=== PATIENT | male | born 1975 | race Caucasian/White ===

== ENCOUNTER 2017-11-12 16:00 | Outpatient (RCR) | payer BC, SELFPAY ==
--- NOTE | 2017-10-03 09:21 | HP.OTEVAL_ITS ---
Patient's Visit Information ASHLEY GONZALES is a 42 year old M, referred to Occupational Therapy by Hussein Kevin, , with a diagnosis of right thumb/ laceration EPL musc/fasc/tend. Date of Evaluation: 10/02/17 Occupational Therapist: Marlee Christy, OTR/L, CHT - Subjective Subjective: pt lacerated his left thumb sx Sep.12. pt 3 weeks S/p returns to on . Attends session today for orthosis to initate rehab protocol. - ROM Wrist: right NT left WNL CMC: right NT left WNL MP: right NT left WNL IP: right NT left WNL ROM Comments: will test right thumb and wrist ROM when pt is at 4 weeks S/P to follow EPL repair protocol - Strength Strength Comments: No limited UB ROM - Sensation Sensation Comments: denies any sensation loss - Goals Goal:100% adherence to protocol: Yes Comment: EPL repair Goal:Daily scar massage when approriate: Yes Goal:ROM equal to unaffected hand: Yes Goal:[employer] Waste Dis[employer] Dispatcher/Pinch strength at least 75% of unaffected hand: Yes Goal:No pain with affected hand use: Yes Goal:Full use of affected hand in daily activities including: Yes Goal:Decrease scar hypersensitivity: Yes - Rehabilitation General Assessment: pt demo he is currently 20 days S/P from EPL repair. pt in need of custom orthosis to provide protection and support to tendon while it heals. Skilled OTR/L, CHT will initate EPL protocol and begin AROM at 4 weeks and cont with protocol until pt has reached his PLOLF Rehabilitation Potential: Excellent - Anticipated Interventions Anticipated Interventions: A/AAROM/PROM, Strengthening, Scar Care, Triggerpoint Release, Desensitization, Modalities, Orthoses, Fine Motor Coord/Moses - Visit Plan Frequency: 1-2x /Week Duration: 3 Months General Plan: pt demo he is currently 20 days S/P from EPL repair. pt in need of custom orthosis to provide protection and support to tendon while it heals. Skilled OTR/L, CHT will initate EPL protocol and begin AROM at 4 weeks and cont with protocol until pt has reached his PLOLF- today pt was oxana custom orthosis and ed. on use and precautions followed with ed. pt on scar mtg. pt demo understanding- TEXT: Thank you for the opportunity to evaluate your patient. For Medicare and Medicare HMO plans, please review the plan of care and approve it. It will need to be FAXED BACK to us at [phone] for Medicare purposes. Please let me know if there are questions or concerns regarding this plan of care. Physician Signature: Date:
--- NOTE | 2018-03-03 15:01 | HP.OT.NRP ---
HP - Discharge Summary - Patient Information ASHLEY GONZALES was seen in my office for initial evaluation on 10/02/17. The following Plan of Care was established for this patient: Initial Frequency: 1-2x /Week Initial Duration: 3 Months Plan: pt to call after dr. el. - Anticipated Interventions Anticipated Interventions: A/AAROM/PROM, Strengthening, Scar Care, Triggerpoint Release, Desensitization, Modalities, Orthoses, Fine Motor Coord/Moses This patient was last seen in our office 11/12/17. Pertinent comments regarding their Occupational therapy will appear below: pt was seen for 6 visits- he was to return to and let us know if he wanted to cont with PRE- pt has not returned and is D/C at this time. At this point I will be discontinuing this patient from occupational therapy. I would be happy to see this patient again in the future if found appropriate by the physician. Thank you! Marlee Christy, OTR/L, CHT
== END 2017-11-12 19:00 | disposition home or self-care (01) ==
LOC: OT 16:00
PROVIDERS: Visit Provider Orthopaedic Surgery
DX: S66.222D Laceration of extensor muscle, fascia and tendon of left thumb at wrist and hand level, subsequent encounter (principal); X58.XXXD Exposure to other specified factors, subsequent encounter
CPT/HCPCS: 97018; 97035; 97140; 97166; 97760

== ENCOUNTER 2021-02-18 20:37 | Emergency (ER) | payer OTHER, SELFPAY ==
[2021-02-18 20:38] VITALS: BP 131/74; PULSE 76; RESP 16; TEMP 37; O2SAT 98; BMI 27.2
--- NOTE | 2021-02-18 20:47 | EDS_ITS ---
HPI History of Present Illness Chief Complaint: Back Narrative Narrative: 46-year-old male presents with right lower back pain. States that he was in his shop lifting an 80 pound piece of metal and twisted when he went to his knees with pain in his right lower back. States that he was able to make it inside and sat in the chair and took 800 mg of Motrin. This occurred approximately 5 hours ago. When his got back he tried to get out of the chair and he felt like his legs were weak. Feels like he has weakness in his right lower extremity. States he is urinated twice since that time without difficulty. Denies any numbness or tingling. Denies any previous back surgery or injuries. [facility] Medical History (Updated 02/18/21 @ 23:[address] Yifan Melvin DO) Acute lumbar back pain Home Medications ibuprofen [Motrin] 800 mg PO BID 02/18/21 [History Last Taken Unknown] methylprednisolone [Medrol (Fritz)] 4 mg PO DAILY #21 tab 02/18/21 [Rx Last Taken Unknown] oxycodone-acetaminophen [Percocet] 1 tab PO Q8H PRN 2 Days #6 tab 02/18/21 [Rx Last Taken Unknown] Allergy/AdvReac Type Severity Reaction Status Date / Time No Known Allergies Allergy Verified 02/18/21 20:38 no significant family history no surgical history Social History Smoking Status: Never smoker ROS ROS ED Constitutional Constitutional ED: Denies chills, fever(s) or sweats Eyes Eyes: Denies blurry vision, change in vision or diplopia ENT ENT ED: Denies rhinorrhea or sore throat Cardiovascular Cardiovascular: Denies chest pain, orthopnea, palpitations or racing heartbeat Respiratory/Chest Respiratory/Chest: Denies cough, dyspnea, dyspnea on exertion, orthopnea or sputum Gastrointestinal Gastrointestinal: Denies abdominal pain, constipation, diarrhea, melena, nausea or vomiting Genitourinary Genitourinary ED: Denies dysuria, hematuria or urinary frequency Musculoskeletal Musculoskeletal: Reports back pain; Denies arthralgias, myalgias or neck pain Integumentary Denies rash Neurologic Neurologic: Denies headache(s), paresthesias or weakness Psychiatric Psychiatric: Denies anxiety or depression Hematologic/Lymphatic Hematologic/Lymphatic: Denies easy bleeding or easy bruising Allergic/Immunologic Allergic/Immunologic ED: Denies mouth swelling or tongue swelling EXAM Physical Exam Const Vital Signs: 02/18/21 20:38 02/18/21 22:26 Temperature 98.6 F Temperature Source Temporal Pulse Rate 76 54 L Respiratory Rate 16 16 Blood Pressure 131/74 H 124/76 H Blood Pressure Mean 93 92 Pulse Ox 98 97 Oxygen Delivery Method Room Air Room Air Positive well nourished and well developed General Appearance ED: well developed HEENT Reports TM's clear and moist mucous membranes normocephalic and atraumatic Tympanic Membrane ED: Yes TM's clear Eyes PERRL and EOMs intact bilaterally Neck no lymphadenopathy, supple and no JVD Chest Wall inspection of chest normal Resp normal respiratory effort and clear to auscultation bilaterally Cardio regular rate, S1 normal heart sound, S2 normal heart sound and no murmurs Peripheral Pulses: pulses 2+ throughout GI soft to palpation, non-tender and non-distended Back/Spine no CVA tenderness and no thoracic nor lumbar tenderness Back/Spine Narrative: Tenderness with muscle spasm on the right paraspinal lumbar musculature. With dorsiflexion of the right foot patient has pain in his right lower back with spasm. Extremity normal to inspection General Extremety ED: Negative for edema or tenderness General Extremity: Negative for edema Neuro oriented x3, CN's II-XII intact bilaterally and no sensory deficits noted Sensorium / Orientation: alert Motor Exam: strength 5/5 throughout Psych mental status grossly normal Skin no rashes or lesions noted MDM MDM MDM Narrative Medical decision making narrative: Patient appears well and nontoxic. Vital signs within normal limits. Patient has no decreased sensation or motor strength in the lower extremities. Patient is having muscle spasm. Was given morphine, Zofran, fluid bolus, Valium. Is feeling somewhat improved and is able to ambulate but is continued to have pain. Was given Dilaudid. Feeling much improved following this. On reevaluation and neurologic exam patient continues to have full motor strength as well as sensation. Patient will be discharged home and given a short course of pain medication as well as Medrol Dosepak. Will be given Dr. Minor orthopedic spine to follow-up with. Asked to return for any loss of bowel or bladder, inability to urinate, fever, chills, saddle anesthesia, lower extremity numbness. Patient and agreeable and discharged home in stable condition. Lab Data Attestation: I reviewed the patient's lab results. Labs: Laboratory Results - last 24 hr 02/18/21 02/18/21 20:55 20:55 WBC 8.1 RBC 5.26 Hgb 15.6 Hct 46.8 MCV 89.0 MCH 29.7 MCHC 33.3 RDW Std Deviation 40.9 RDW Coeff of Bautista 12.5 Plt Count 241 MPV 10.1 Immature Gran % (Auto) 0.400 Neut % (Auto) 59.5 Lymph % (Auto) 31.5 [place] % (Auto) 6.5 Eos % (Auto) 1.2 Baso % (Auto) 0.9 Absolute Neuts (auto) 4.8 Absolute Lymphs (auto) 2.54 Nucleated RBC % 0 Sodium 141 Potassium 3.6 Chloride 106 Carbon Dioxide 29.0 Anion Gap 6 BUN 13 Creatinine 1.12 Estim Creat Clear Calc 93.78 Est GFR (MDRD) Af Amer 90 Est GFR (MDRD) Non-Af 74 BUN/Creatinine Ratio 11.6 Glucose 104 Calcium 9.3 Discharge Plan Triage Chief Complaint: Back ED Provider: Yifan Melvin Dx/Rx/DC Orders Clinical Impression: Muscle spasm, Acute lumbar back pain Instructions: ED Back Exercises, Lumbar, ED Back Spasm, No Trauma Prescriptions: New oxycodone-acetaminophen [Percocet] 5-325 mg tablet 1 tab PO Q8H PRN (Reason: pain) 2 Days Qty: 6 RF: 0 methylprednisolone [Medrol (Fritz)] 4 mg tablets,dose pack 4 mg PO DAILY Qty: 21 RF: 0 No Action ibuprofen [Motrin] 800 mg Tablet 800 mg PO BID RF: 0 Primary Care Provider: Damien Hope Referrals: Altaf Minor DO [STAFF PHYSICIAN] - 3-5 Days Damien Hope MD [Primary Care Provider] - 2 Days Activity Restrictions/Additional Instructions: Patient should have no lifting over 5 pounds until cleared by orthopedics or significant improvement of symptoms. Disposition Disposition: Home, self care
[2021-02-18] MEDS: Ondansetron 4 MG/2 ML Vial IV (20:51)
[2021-02-18] MEDS: Morphine 4 MG/ML Syringe IV (20:51)
[2021-02-18 21:07] LABS: Absolute Lymphocyte Count 2.54 X10^3/uL (0.83-4.51); Absolute Neutrophil Count 4.8 X10^3/uL (2.0-7.7); Basophil# 0.07 X10^3/uL; Basophil% 0.9 % (0-1); Eosinophils% 1.2 % (0-5); Hematocrit 46.8 % (40-54); Hemoglobin 15.6 g/dL (13.0-16.5); Lymphocyte # 2.54 X10^3/ul (0.83-4.51); Lymphocyte % 31.5 % (19-41); Mean Corp Hgb Conc 33.3 g/dL (32-36); Mean Corpuscular Hgb 29.7 pg (27.0-32.0); Mean Platelet Vol. 10.1 fl (6.2-12.0); Monocyte# 0.52 X10^3/uL; Monocyte% 6.5 % (0-10); NRBC Flagged by Analyzer 0 % (0-5); Neutrophil % 59.5 % (47-70); Platelet Count 241 K/mm3 (150-450); RBC Distribution Width CV 12.5 % (11.6-14.6); RBC Distribution Width SD 40.9 fl (35.1-43.9); Red Blood Count 5.26 M/mm3 (4.6-6.2); White Blood Count 8.1 K/mm3 (4.4-11.0)
[2021-02-18 21:23] LABS: Anion Gap 6 (5-15); BUN 13 mg/dL (7-18); BUN/Creat Ratio 11.6 RATIO (10-20); Calcium,Total 9.3 mg/dL (8.5-10.1); Chloride 106 mmol/L (98-107); Creatinine, Serum 1.12 mg/dL (0.70-1.30); EST Glomerular Filtration Rate 74 mL/min (>60); Est Glom Filt Rate - Afr Amer 90 mL/min (>60); Estimated Creatinine Clearance 93.78 ml/min; Glucose 104 mg/dL (74-106); Potassium 3.6 mmol/L (3.5-5.1); Sodium Level 141 mmol/L (136-145)
[2021-02-18] MEDS: diazePAM 5 MG Tablet PO (21:35)
[2021-02-18 22:26] VITALS: BP 124/76; PULSE 54; RESP 16; O2SAT 97
--- NOTE | 2021-02-18 22:32 | NURSING ---
Pt walked around the room. Pt continues to c/o pain. notified
[2021-02-18] MEDS: HYDROmorphone 0.5 MG/0.5 ML SYRINGE IV (22:42)
[2021-02-18 23:38] VITALS: BP 117/72; PULSE 55; RESP 18; O2SAT 98
== END 2021-02-18 23:39 | disposition home or self-care (01) ==
PROVIDERS: Emergency Provider Emergency Medicine; PCP Family Medicine
DX: M54.5 Low back pain (principal); M62.830 Muscle spasm of back
CPT/HCPCS: 80048; 85025; 96361; 96374; 96375; 99283; J7040; A4216; J2405

== ENCOUNTER → 2021-02-26 16:18 | Outpatient (CLI) | payer OTHER, SELFPAY ==
[2021-02-20 10:03] VITALS: BMI 26.3
--- NOTE | 2021-02-26 16:18 | MRI_ITS ---
STUDY: MRI LUMBAR SPINE WITHOUT CONTRAST REASON FOR EXAM: Male, 46 years old. Severe low back pain and right leg pain after bending over. TECHNIQUE: Standardized fat and water weighted pulse sequences were obtained in the sagittal and axial planes. COMPARISON: None FINDINGS: T12-L1: (Sagittal only). Normal endplates. Normal disc height, hydration and morphology. No ventral extradural defect. Normal central canal and bilateral intervertebral neural foramina. Normal lumbar lordosis. There is no substantial scoliosis. Normal conus medullaris that terminates at the lower L1 vertebral body level. L1-2: Normal endplates. Normal disc height, hydration and morphology. Normal bilateral facet joints. Normal central canal and bilateral lateral recesses. Normal bilateral intervertebral neural foramina. L2-3: Normal endplates. Mild disc space height narrowing. No ventral extradural defect. Normal central canal and bilateral lateral recesses. Normal facet joints. Normal bilateral intervertebral neural foramina. Prominent overlapping left renal cysts are visible at this level. L3-4: Anterior marginal spurs. Normal endplates. Mild disc space height narrowing. No ventral extradural defect. Normal central canal and bilateral lateral recesses. Normal facet joints. Normal bilateral intervertebral neural foramina. L4-5: Normal endplates. Normal disc height. Small posterior annular bulging disc. Normal central canal and bilateral lateral recesses. Normal facet joints. Normal bilateral intervertebral neural foramina. L5-S1: Normal endplates. Normal disc height, hydration and morphology. Normal bilateral facet joints. Normal central canal and bilateral lateral recesses. Normal bilateral intervertebral neural foramina. Normal visualized sacral ala. Normal visualized paraspinous soft tissue structures. MRI/Spine Lumbar (Routine) IMPRESSION: 1. No MRI evidence of lumbar extruded disc fragment, spinal stenosis or nerve or displacement. 2. Small L4-L5 posterior annular bulging disc. Electronically Signed: Addison Miranda MD at 10:20 EDT , Service support ,
== END ==
PROVIDERS: PCP Family Medicine; Referring Provider Orthopaedic Surgery; Visit Provider Orthopaedic Surgery
DX: M51.26 Other intervertebral disc displacement, lumbar region (principal)
CPT/HCPCS: 72148

== ENCOUNTER → 2023-04-08 | Outpatient (CLI) | payer OTHER, SELFPAY ==
--- NOTE | 2023-04-08 10:10 | RAD_ITS ---
INDICATION: PAIN IN LUMBAR SPINE EXAMINATION/TECHNIQUE: X-RAY - XR Spine Lumbar Comp W/ Bending Min 6 Views COMPARISON: FINDINGS: VERTEBRAE: Preserved vertebral body height. No fracture. No spondylolisthesis. Preservation of the normal lumbar lordosis. No significant facet arthropathy. DISCS: There is mild multilevel disc space narrowing and endplate spondylosis. INCLUDED ABDOMEN: Included bowel gas pattern is non-obstructive. RAD/L/S Spine w Bend Min 6 Vw IMPRESSION: Degenerative changes. Electronically Signed: Scar Geronimo, at 14:56 EDT ,
== END | disposition home or self-care (01) ==
LOC: MTRAD 10:01
PROVIDERS: PCP Family Medicine; Referring Provider Anesthesiology Pain Medicine; Visit Provider Anesthesiology Pain Medicine
DX: M54.17 Radiculopathy, lumbosacral region (principal)
CPT/HCPCS: 72114

== ENCOUNTER → 2024-11-01 | Outpatient (CLI) | payer OTHER, SELFPAY ==
--- NOTE | 2024-11-01 17:12 | MRI_ITS ---
STUDY: MRI LUMBAR SPINE WITHOUT CONTRAST REASON FOR EXAM: Male, 49 years old. RT LEG WEAKNESS TECHNIQUE: Standardized fat and water weighted pulse sequences were obtained in the sagittal and axial planes. COMPARISON: February 26, 2021 FINDINGS: T12-L1: Normal endplates. Normal disc height, hydration and morphology. Normal bilateral facet joints. Normal central canal and bilateral lateral recesses. Normal bilateral intervertebral neural foramina. Normal lumbar lordosis. There is no substantial scoliosis. Normal conus medullaris that terminates at T12-L1. No evidence for acute fracture or subluxation. Scattered interosseous lipomatous deposits. L1-2: Anterior endplate spurring. Normal disc height, disc hydration and minimal annular bulge. Normal bilateral facet joints. Normal central canal and bilateral lateral recesses. Normal bilateral intervertebral neural foramina. L2-3: Mild anterior endplate spurring. Narrowed disc space with desiccation of the disc and minimal annular bulge. Normal bilateral facet joints. Normal central canal and bilateral lateral recesses. Normal bilateral intervertebral neural foramina. L3-4: Mild anterior endplate spurring. Narrowed disc space with desiccation of disc and small left foraminal disc protrusion and tiny right foraminal disc protrusion on the right. Mild facet arthropathy. Normal central canal and bilateral lateral recesses. Mild right neural foraminal stenosis and moderate left neural foraminal encroachment. L4-5: Normal endplates. Normal disc height, desiccation and minimal annular bulge with tiny broad-based right paracentral disc protrusion and small left foraminal disc protrusion. Facet arthropathy.. Normal central canal and bilateral lateral recesses. Mild left neural foraminal stenosis L5-S1: Normal endplates. Normal disc height, hydration and minimal annular bulge with tiny right foraminal disc protrusion. Facet arthropathy.. Normal central canal and bilateral lateral recesses. Moderate to severe right neuroforaminal stenosis Normal visualized sacral ala. Normal visualized paraspinous soft tissue structures. There has been slight interval progression of disc disease since prior exam MRI/Spine Lumbar (Routine) IMPRESSION: No evidence for acute fracture or other significant bony pathology. Multilevel spinal stenosis secondary to disc disease and bony hypertrophy more pronounced at L3-4 and L4-5 on the left and L5-S1 on the right Electronically Signed: Damien Benites MD at 18:58 EST Reading Location ID and State: [facility] / [place] Tel , Service support ,
== END | disposition home or self-care (01) ==
PROVIDERS: PCP Family Medicine; Referring Provider Anesthesiology Pain Medicine; Visit Provider Anesthesiology Pain Medicine
DX: M54.17 Radiculopathy, lumbosacral region (principal); R29.898 Other symptoms and signs involving the musculoskeletal system
CPT/HCPCS: 72148

== ENCOUNTER 2024-12-03 08:00 | Outpatient (RCR) | payer OTHER, SELFPAY ==
--- NOTE | 2024-11-04 13:49 | HP.PTEVAL_ITS ---
Patient's Visit Information Visit Information Visit Information: ASHLEY GONZALES is a 49 year old M referred to Physical Therapy by Dr. Damien Gonzalez MD with a diagnosis of INTERVERBAL DISC DEGENERATION ,LUMBAR ,RADICULOPATHY LUMBAR. Date of Evaluation: 11/04/24 Physical Therapist: Bandar Ng, PT, Cert MDT, OCS Visit Plan Frequency: 2x /Week Duration: 4 Weeks Plan: PT INTERVENTIONS ADDY EX'S ,DLS ,POSTURAL EX'S ,BLE FLEXABILITY ,MANUAL THERAPY AND MODALTIES Subjective Subjective: This 49 y/o male presents to physical therapy with lumbar radiculopathy. Patient has had lumbar pain 2020 ,had consult with DR Minor then had epidural injection which helped 2020. Patient had episode Friday developed severe pain right leg with shoveling snow. Seen Dr Lopez recommended PThad prednisone which. MRI showed multiple disc protrusion and osteophytes. Initially used crutches to pain and weakness in right legs , Patient uses cane because leaning on cane. Location lumbar center to right. Aggravating bending,walking ,lifting ,twisting ,. Alleviating factors sitting. Coughing/sneezing + Bowel/bladder -. Patient sleeping good. Patient is not working . Patient and Patient condition affects QOL and function/job demands. Patient goals to decrease pain. 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 SOCIAL: Pain Right Back: Pain Intensity (Out of 10): 5 Pain Intensity Range: 10 Objective Objective: POSTURE: mild forward posture GAIT: ambulates with cane 2 point slow valdo NEURO: denies paresthesia/tingling ,reflexes L3-4,L4-5,L5--S 1 2/3 MMT: quads/hams/hip 4-/5 ,ankle 4/5 FLEXABILITY: hamstrings min loss LUMBAR ROM: flexion mod loss ,extension mod loss ,side glides min loss Special Tests L/S Slump test left side: Positive L/S Slump test right side: Positive L/S Left Straight Leg Raise: Negative L/S Right Straight Leg Raise: Negative Lumbar Standing: Flexion - Mechanical Response: No effect Lumbar Standing: Flexion - Symptoms During Testing: Increases Lumbar Standing: Flexion - Symptoms After Testing: Worse Lumbar Standing: Extension - Mechanical Response: No effect Lumbar Standing: Extension - Symptoms During Testing: Decreases Lumbar Standing: Extension - Symptoms After Testing: Better Lumbar Standing: Right Side Glides - Mechanical Response: No effect Lumbar Standing: Right Side [place] - Symptoms During Testing: No effect Lumbar Standing: Right Side [place] - Symptoms After Testing: No effect Lumbar Standing: Left Side [place] - Mechanical Response: No effect Lumbar Standing: Left Side [place] - Symptoms During Testing: No effect Lumbar Standing: Left Side [place] - Symptoms After Testing: No effect Lumbar Lying: Flexion - Mechanical Response: No effect Lumbar Lying: Flexion - Symptoms During Testing: Increases Lumbar Lying: Flexion - Symptoms After Testing: Worse Lumbar Lying: Extension - Mechanical Response: Increases motion Lumbar Lying: Extension - Symptoms During Testing: Decreases Lumbar Lying: Extension - Symptoms After Testing: Better Balance/Special Test Scores Oswestry Low Back Score: 28 Goals Goal 1:: Patient to be I with HEP for back Goal Time Frame: 4-6 Weeks Goal 2:: Patient to improve lumbar ROM for function of recovery for ADLS and lifting Goal Time Frame: 4-6 Weeks Goal 3:: Patient to improve back oswestry score by 5 points to improve QOL Goal Time Frame: 4-6 Weeks Goal 4:: Patient to improve strength BLE to good to improve function and RTW Goal Time Frame: 4-6 Weeks Goal 5:: Patient to demonstrate 60% improvement with function and RTW Goal Time Frame: 4-6 Weeks Rehabilitation Potential Physical Therapy Diagnosis: This patient has derangement asymmetrical central with disc protrusion with pain worse with flexion ,bending ,lifting better with extension along with weakness in legs thus benefit from skilled PT Rehabilitation Potential: Good Anticipated Interventions Patient/Client Instruction: Educate patient on: Condition and Plan of Care For the Purpose of:: To decrease pain, To increase ROM, To improve muscle performance and motor function, To increase tolerance to activity/condition/position, To improve ability of physical actions for home/community/work/leisure, To improve gait and locomotor functions, To improve health of tissue, To decrease soft tissue restriction, To increase flexibility/ROM, To improve endurance, To reduce risk of recurrence and To prevent re-injury Therapeutic Exercise to Include: Strength training, Postural training, Flexibilty training, Dynamic Lumbar Stabilization and Addy Exercises For the Purpose of:: To decrease pain, To decrease swelling/inflammation, To improve muscle performance and motor function, To increase tolerance to activity/condition/position, To improve ability of physical actions for home/community/work/leisure, To improve health of tissue, To increase flexibility/ROM, To reduce risk of recurrence, To prevent re-injury and To improve tolerance to ADL's Manual Therapy Techniques to Include: Mobilization For the Purpose of:: To decrease pain, To increase ROM, To improve health of tissue and To decrease soft tissue restriction TENS: Yes IF ES: Yes Cryotherapy (ice pack, ice massage): Yes Thermo therapy (hot pack): Yes Ultrasound (thermal/non thermal): Yes For the Purpose of:: To decrease pain, To increase ROM, To improve muscle performance and motor function, To increase tolerance to activity/condition/position, To improve health of tissue, To decrease soft tissue restriction and To increase flexibility/ROM Text: Thank you for the opportunity to evaluate your patient. For Medicare and Medicare HMO plans, please review the plan of care and approve it. It will need to be FAXED BACK to us at [phone] for Medicare purposes. For Medicare only, by signing this I certify the plan of care. Please let me know if there are questions or concerns regarding this plan of care. Physician Signature: Date:
--- NOTE | 2024-12-03 08:22 | HP.PTDCSUM ---
Discharge Summary D/C summary: It has been my pleasure to treat ASHLEY GONZALES referred by Dr. Damien Gonzalez MD, with the diagnosis of INTERVERBAL DISC DEGENERATION ,LUMBAR ,RADICULOPATHY LUMBAR for a total of 9 visit(s). Discharge Date: Please see the following information for a summary of their discharge status. Subjective Subjective: Patient doing alot better no pain Patient had epidural injection ..seen DR eden Wed Pain Right Back: Pain Intensity (Out of 10): 0 Overall Improvement % Improvement: 90 Objective Objective/Function: POSTURE: WFL GAIT: ambulates RECIPROCAL PATTERN NEURO: denies paresthesia/tingling ,reflexes L3-4,L4-5,L5--S 1 2/3 MMT: quads/hams/hip 4/5 ,ankle 4/5 FLEXABILITY: hamstrings min loss LUMBAR ROM: flexion MIN/mod loss ,extension WFL ,side glides WFL Goals Goal 1:: Patient to be I with HEP for back Goal Progress: Goal Met Goal 2:: Patient to improve lumbar ROM for function of recovery for ADLS and lifting Goal Progress: Goal Met Goal 3:: Patient to improve back oswestry score by 5 points to improve QOL Goal Progress: Goal Met Goal 4:: Patient to improve strength BLE to good to improve function and RTW Goal 5:: Patient to demonstrate 60% improvement with function and RTW Goal Progress: Goal Met Plan Plan: D/C D/C Information d/c sentence: If there are questions or concerns regarding this patient's physical therapy, please feel free to call me at [phone]. Thank you for the referral of this patient. Sincerely, Bandar Ng, PT, Cert MDT, OCS Balance/Gait/Functional tests Balance/Special Test Scores Oswestry Low Back Score: 0 Improvement % Improvement: 90
== END 2024-12-03 10:07 | disposition home or self-care (01) ==
LOC: PT 08:00
PROVIDERS: PCP Family Medicine; Referring Provider Anesthesiology Pain Medicine; Visit Provider Anesthesiology Pain Medicine
DX: M51.372 Other intervertebral disc degeneration, lumbosacral region with discogenic back pain and lower extremity pain (principal); M54.17 Radiculopathy, lumbosacral region
CPT/HCPCS: 97110; 97162; 97530